=== PATIENT | male | born 1975 | race Caucasian/White ===

== ENCOUNTER 2018-07-07 11:55 | Inpatient (IN) | payer OTHER, MEDICAID ==
--- NOTE | 2018-07-07 13:21 | ER Document Report ---
ED Medical Screen (RME) - General TRAVEL OUTSIDE OF THE U.S. IN LAST 30 DAYS: No <MANDY PLAZA - Last Filed: 07/07/18 13:20> <DELANEY GOODMAN - Last Filed: 07/07/18 17:51> - General Chief Complaint: Abdominal Pain Stated Complaint: ABDOMINAL PAIN/VOMITING Time Seen by Provider: 07/07/18 13:11 Notes: 42-year-old male patient with history of alcoholic pancreatitis. He moved down here from [place] to do [employer] work in the end of April. He reports drinking Saturday night and Saturday night and triggering his pancreatitis. He did vomit this morning when he tried to drink a Monster drink. His last episode of pancreatitis was in March 2018 where he was hospitalized. He states that episode was not triggered by alcohol but feels that this episode most likely was triggered by the alcohol he drank this weekend. I have greeted and performed a rapid initial assessment of this patient. A comprehensive ED assessment and evaluation of the patient, analysis of test results and completion of the medical decision making process will be conducted by additional ED providers. (MANDY PLAZA) - Related Data Allergies/Adverse Reactions: meperidine [From Demerol] Adverse Reaction (Verified 07/07/18 11:58) Past Medical History - Social History Frequency of alcohol use: 8 beers a day Drug Abuse: None - Past Medical History Cardiac Medical History: Reports: Hx Hypercholesterolemia, Hx Hypertension Endocrine Medical History: Reports: Hx Diabetes Mellitus Type 2 - borderline Renal/ Medical History: Denies: Hx Peritoneal Dialysis <MANDY PLAZA - Last Filed: 07/07/18 13:20> - Vital signs Vitals: Temp Pulse Resp BP Pulse Ox 98.1 F 89 18 141/84 H 98 07/07/18 12:13 07/07/18 12:13 07/07/18 12:13 07/07/18 12:13 07/07/18 12:13 Course - Laboratory Result Diagrams: 07/07/18 13:25 07/07/18 13:25 <DELANEY GOODMAN - Last Filed: 07/07/18 17:51> - Vital Signs Vital signs: Temp Pulse Resp BP Pulse Ox 98.1 F 89 18 141/84 H 98 07/07/18 12:13 07/07/18 12:13 07/07/18 12:13 07/07/18 12:13 07/07/18 12:13 - Laboratory Laboratory results interpreted by me: 07/07/18 07/07/18 07/07/18 13:25 13:25 13:25 MCV 98 H MCH 33.9 H RDW 14.9 H Calcium 10.7 H ALT 16 L Albumin 5.1 H Lipase 929.6 H Urine Protein 30 H Urine Ketones TRACE H Urine Urobilinogen 2.0 H Doctor's Discharge <MANDY PLAZA - Last Filed: 07/07/18 13:20> <DELANEY GOODMAN - Last Filed: 07/07/18 17:51> - Discharge Clinical Impression: Alcohol abuse Pancreatitis Qualifiers: Chronicity: acute Pancreatitis type: alcohol induced Acute pancreatitis complication: unspecified Qualified Code(s): K85.20 - Alcohol induced acute pancreatitis without necrosis or infection Condition: Good Disposition: ADMITTED INPATIENT
[2018-07-07 13:44] LABS: APPEARANCE,URINE SLIGHTLY-CLOUDY; BILIRUBIN,URINE NEGATIVE (NEGATIVE); GLUCOSE, URINE NEGATIVE (NEGATIVE); KETONES,URINE TRACE mg/dL (NEGATIVE); LEUKOCYTE ESTERASE,URINE NEGATIVE (NEGATIVE); NITRITE,URINE NEGATIVE (NEGATIVE); PROTEIN,URINE 30 mg/dL (NEGATIVE); URINE SPECIFIC GRAVITY 1.028
[2018-07-07 13:45] LABS: COLOR,URINE YELLOW
[2018-07-07 14:01] LABS: ABSOLUTE EOSINOPHILS # (AUTO) 0.1 10^3/uL (0.0-0.6); ABSOLUTE LYMPHOCYTES (AUTO) 1.1 10^3/uL (0.5-4.7); ABSOLUTE MONOCYTES (AUTO) 0.7 10^3/uL (0.1-1.4); ABSOLUTE NEUT (AUTO) 5.9 10^3/uL (1.7-8.2); BASOPHILS % (AUTO) 0.4 % (0-2); EOSINOPHILS % (AUTO) 0.8 % (0-6); HEMATOCRIT 45.1 % (37.9-51.0); HEMOGLOBIN 15.6 g/dL (13.5-17.0); LYMPHOCYTES % (AUTO) 13.8 % (13-45); MEAN CORPUSCULAR HEMOGLOBIN 33.9 pg (27.0-33.4); MEAN CORPUSCULAR HGB CONC 34.6 g/dL (32.0-36.0); MEAN CORPUSCULAR VOLUME 98 fl (80-97); MONOCYTES % (AUTO) 9.4 % (3-13); PLATELET COUNT 350 10^3/uL (150-450); RED BLOOD COUNT 4.61 10^6/uL (4.35-5.55); RED CELL DISTRIBUTION WIDTH 14.9 % (11.5-14.0); SEGMENTED NEUTROPHILS % (AUTO) 75.6 % (42-78); TOTAL CELLS COUNTED % (AUTO) 100 %; WHITE BLOOD COUNT 7.8 10^3/uL (4.0-10.5)
[2018-07-07] MEDS ORDERED: RINGERS SOLUTION,LACTATED 1,000 ML IV ONE (14:07)
[2018-07-07 14:13] LABS: ALANINE AMINOTRANSFERASE 16 U/L (21-72); ALBUMIN 5.1 g/dL (3.5-5.0); ALKALINE PHOSPHATASE 76 U/L (38-126); ANION GAP 16 (5-19); ASPARTATE AMINO TRANSFERASE 24 U/L (17-59); BILIRUBIN,DIRECT 0.3 mg/dL (0.0-0.4); BILIRUBIN,TOTAL 0.5 mg/dL (0.2-1.3); BLOOD UREA NITROGEN 11 mg/dL (7-20); CALCIUM 10.7 mg/dL (8.4-10.2); CARBON DIOXIDE 28 mmol/L (22-30); CHLORIDE 99 mmol/L (98-107); GLUCOSE 107 mg/dL (75-110); LIPASE 929.6 U/L (23-300); POTASSIUM 4.6 mmol/L (3.6-5.0); SODIUM 142.6 mmol/L (137-145)
--- NOTE | 2018-07-07 15:23 | RADIOLOGY REPORT (SQ) ---
EXAM DESCRIPTION: CT ABD/PELVIS WITH IV ONLY COMPLETED DATE/TIME: 07/07/2018 3:09 pm REASON FOR STUDY: concern for pancreatic free fluid COMPARISON: None. TECHNIQUE: CT scan of the abdomen and pelvis performed using helical scanning technique with dynamic intravenous contrast injection. No oral contrast. Images reviewed with lung, soft tissue, and bone windows. Reconstructed coronal and sagittal MPR images reviewed. Delayed images for evaluation of the urinary system also acquired. All images stored on PACS. All CT scanners at this facility use dose modulation, iterative reconstruction, and/or weight based d osing when appropriate to reduce radiation dose to as low as reasonably achievable (ALARA). [facility]: Dose Right [facility]: CareDose [facility]: Dose Right [facility]: Teradose 4D [facility]: Definicare CONTRAST TYPE AND DOSE: contrast/concentration: Isovue 350.00 mg/ml; Total Contrast Delivered: 78.0 ml; Total Saline Delivered: 67.0 ml RENAL FUNCTION: GFR > 60. RADIATION DOSE: CT Rad equipment meets quality standard of care and radiation dose reduction techniq ues were employed. CTDIvol: 5.0 - 6.2 mGy. DLP: 612 mGy-cm.. LIMITATIONS: None. FINDINGS: LOWER CHEST: No significant findings. No nodules or infiltrates. LIVER: Normal size. No masses. No dilated ducts. SPLEEN: Normal size. No focal lesions. PANCREAS: No masses. No significant calcifications. Mild inflammatory changes involving the pancreat ic head. No adjacent peripancreatic fluid collections. Pancreatic duct not dilated. GALLBLADDER: No identified stones by CT criteria. No inflammatory changes to suggest cholecystitis. ADRENAL GLANDS: No significant masses or asymmetry. RIGHT KIDNEY AND URETER: No solid masses. No significant calcifications. No hydronephrosis or hyd roureter. LEFT KIDNEY AND URETER: No solid masses. No significant calcifications. No hydronephrosis or hydr oureter. AORTA AND VESSELS: No aneurysm. No dissection. Renal arteries, SMA, celiac without stenosis. RETROPERITONEUM: No retroperitoneal adenopathy, hemorrhage or masses. BOWEL AND PERITONEAL CAVITY: No masses or inflammatory changes. No free fluid or peritoneal masses. APPENDIX: Normal. PELVIS: No mass. No free fluid. Normal bladder. ABDOMINAL WALL: No masses. No hernias. BONES: No significant or acute findings. OTHER: No other significant finding. IMPRESSION: MILD INFLAMMATORY CHANGES INVOLVING THE PANCREATIC HEAD SUSPICIOUS FOR PANCREATITIS. NO ABNORMAL FLUID COLLECTIONS. NO OTHER SIGNIFICANT OR ACUTE FINDING IN THE ABDOMEN OR PELVIS ON CT SC AN WITH IV CONTRAST. TECHNICAL DOCUMENTATION: JOB ID: [id number] Quality ID # [id number]: Final reports with documentation of one or more dose reduction techniques (e.g., Au tomated exposure control, adjustment of the mA and/or kV according to patient size, use of iterative reconstruction technique) 2010 [employer]- All Rights Reserved Reading location - IP/workstation name: [email or web address]
[2018-07-07] MEDS ORDERED: ONDANSETRON HCL INJ/PF 4 MG/2 ML SDV IV ONE (15:24)
[2018-07-07] MEDS ORDERED: MORPHINE SULFATE 10 MG/ML INJ IV ONE (15:25)
[2018-07-07] MEDS ORDERED: DEXTROSE 50%-WATER 25 GM/50 ML DISP.SYRIN IV PRN ×2 (17:55)
[2018-07-07] MEDS ORDERED: DEXTROSE 40% GEL 15 GM TUBE PO PRN ×2 (17:55)
[2018-07-07] MEDS ORDERED: GLUCAGON,HUMAN RECOMB 1 MG INJ IM PRN (17:55)
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
--- NOTE | 2018-07-07 18:23 | ER Document Report ---
ED General - General Chief Complaint: Abdominal Pain Stated Complaint: ABDOMINAL PAIN/VOMITING Time Seen by Provider: 07/07/18 13:11 TRAVEL OUTSIDE OF THE U.S. IN LAST 30 DAYS: No - HPI Patient complains to provider of: Abdominal pain Onset: Other - 43-year-old male presents for evaluation of abdominal pain in the setting of chronic pancreatitis is a chronic alcoholic. He notes that he is a daily drinker of 8-10 beers has been seen multiple times in the past for his pancreatitis. Saturday he was binge drinking (2 days prior) and states that he was worse thereafter. He has been seen previously at the [facility] for his recurrent episodes of pancreatitis and a possible gastric cancer for which she had a feeding tube placed briefly which was removed and then he left it out. He denies any other fevers chills episodes. He is attempting also to stop drinking. - Related Data Allergies/Adverse Reactions: meperidine [From Demerol] Adverse Reaction (Verified 07/07/18 11:58) Past Medical History - General Information source: Patient, Relative - Social History Smoking Status: Current Every Day Smoker Frequency of alcohol use: 8 beers a day Drug Abuse: None Family History: None Patient has suicidal ideation: No Patient has homicidal ideation: No - Past Medical History Cardiac Medical History: Reports: Hx Hypercholesterolemia, Hx Hypertension Endocrine Medical History: Reports: Hx Diabetes Mellitus Type 2 - borderline Renal/ Medical History: Denies: Hx Peritoneal Dialysis Review of Systems - Review of Systems -: Yes All other systems reviewed and negative Physical Exam - Vital signs Vitals: Temp Pulse Resp BP Pulse Ox 98.1 F 89 18 141/84 H 98 07/07/18 12:13 07/07/18 12:13 07/07/18 12:13 07/07/18 12:13 07/07/18 12:13 - General General appearance: Alert In distress: Mild - HEENT Head: Normocephalic Eyes: Normal Conjunctiva: Normal Cornea: Normal Extraocular movements intact: Yes Eyelashes: Normal Pupils: PERRL - Respiratory Respiratory status: No respiratory distress Chest status: Nontender Breath sounds: Normal Chest palpation: Normal - Cardiovascular Rhythm: Regular Heart sounds: Normal auscultation Murmur: No - Abdominal Inspection: Normal Distension: No distension Tenderness: Tender - Diffusely tender no rebound no guarding - Back Back: Normal - Extremities General upper extremity: Normal inspection, Nontender, Normal strength, Normal temperature General lower extremity: Normal inspection, Nontender, Normal strength, Normal temperature - Neurological Neuro grossly intact: Yes Cognition: Normal Orientation: AAOx4 Philippe Coma Scale Eye Opening: Spontaneous Philippe Coma Scale Verbal: Oriented [place] Coma Scale Motor: Obeys Commands Irvona Coma Scale Total: 15 Speech: Normal Cranial nerves: Normal Cerebellar coordination: Normal Motor strength normal: LUE, RUE, LLE, RLE - Psychological Associated symptoms: Normal affect Course - Re-evaluation Re-evalutation: 07/07/18 18:53 43-year-old man with recurrent chronic alcoholic pancreatitis who presents for abdominal pain. He was binge drinking 2 days prior thereafter had the onset of abdominal pain. Would like to stop drinking states that he has never had any complicated withdrawal in the past he has gone cold turkey off of alcohol recently. We will obtain broad workup including CMP lipase and CT of the abdomen and pelvis. CT demonstrates inflammatory changes consistent with pancreatitis. Lipase is approximately 1000. Patient has been unable to tolerate p.o. in the emergency department and required multiple doses of narcotics as such we will plan for admission to the hospital for ongoing management of his symptoms and potential alcohol withdrawal. - Vital Signs Vital signs: Temp Pulse Resp BP Pulse Ox 98.7 F 63 18 170/90 H 99 07/07/18 18:48 07/07/18 18:48 07/07/18 18:48 07/07/18 18:48 07/07/18 18:48 - Laboratory Result Diagrams: 07/07/18 13:25 07/07/18 13:25 Laboratory results interpreted by me: 07/07/18 07/07/18 07/07/18 13:25 13:25 13:25 MCV 98 H MCH 33.9 H RDW 14.9 H Calcium 10.7 H ALT 16 L Albumin 5.1 H Lipase 929.6 H Urine Protein 30 H Urine Ketones TRACE H Urine Urobilinogen 2.0 H Discharge - Discharge Clinical Impression: Alcohol abuse Pancreatitis Qualifiers: Chronicity: acute Pancreatitis type: alcohol induced Acute pancreatitis complication: unspecified Qualified Code(s): K85.20 - Alcohol induced acute pancreatitis without necrosis or infection Condition: Good Disposition: ADMITTED INPATIENT Admitting Provider: Hospitalist Unit Admitted: Medical Floor
[2018-07-07] MEDS: NORMAL SALINE 1000 ML 1,000 ML IV PRN (18:32)
[2018-07-07] MEDS: MORPHINE SULFATE 10 MG/ML INJ IV PRN ×2 (19:14→23:47)
[2018-07-07] MEDS: ONDANSETRON HCL INJ/PF 4 MG/2 ML SDV IV PRN (19:14)
[2018-07-07] MEDS: NORMAL SALINE 1000 ML 1,000 ML with POTASSIUM CHLORIDE 20 MEQ, MAGNESIUM SULFATE 8 MEQ,... IV SCH ×5 (20:25)
[2018-07-07] MEDS: LORAZEPAM INJ 2 MG/1 ML VIAL IV PRN (22:20)
[2018-07-07] MEDS: HEPARIN SOD (PORCINE) 5,000 UNIT/ML 1 ML SYRINGE SUBCUT SCH (23:01)
[2018-07-08] MEDS: MORPHINE SULFATE 10 MG/ML INJ IV PRN ×6 (03:23→22:45)
[2018-07-08] MEDS: ONDANSETRON HCL INJ/PF 4 MG/2 ML SDV IV PRN ×2 (03:23→18:24)
[2018-07-08] MEDS: NORMAL SALINE 1000 ML 1,000 ML IV PRN ×2 (03:24→11:40)
[2018-07-08] MEDS: KETOROLAC TROMETHAMINE INJ/PF 30 MG/1 ML SDV IV PRN (06:30)
--- NOTE | 2018-07-08 07:57 | EKG REPORT ---
SEVERITY:- ABNORMAL ECG - SINUS RHYTHM CONSIDER LEFT VENTRICULAR HYPERTROPHY : Confirmed by: Jamison Oconnor MD 08-Jul-2018 07:57:10
[2018-07-08] MEDS: LORAZEPAM INJ 2 MG/1 ML VIAL IV PRN (10:19)
[2018-07-08] MEDS ORDERED: NORMAL SALINE INJ/PF 0.9% 10 ML SDV IV ONE (10:29)
--- NOTE | 2018-07-08 10:39 | PDOC PROGRESS REPORT ---
Subjective Progress Note for:: 07/08/18 Subjective:: 07/08/[id number]-gabh-old male admitted for abdominal pain on 07/07/2018 lipase was elevated it was [address] abdominal pelvis was done shows mild inflammation around the pancreas. Patient is n.p.o. he is on IV fluids getting IV morphine and Ativan for his anxiety he is smiling and denies any pain pain scale is stating he is around 1-2 x 10. Reason For Visit: ACUTE PANCREATITIS,CHRONIC PANC,ALCOHOL USE Physical Exam Vital Signs: Temp Pulse Resp BP Pulse Ox 98.3 F 65 18 122/71 99 07/08/18 03:44 07/08/18 03:44 07/08/18 03:44 07/08/18 03:44 07/08/18 03:44 Intake & Output 07/07/18 07/08/18 07/09/18 06:59 06:59 06:59 Intake Total 1000 Output Total 650 Balance 350 Weight 65.4 kg General appearance: PRESENT: no acute distress Head exam: PRESENT: atraumatic Eye exam: PRESENT: PERRLA Respiratory exam: PRESENT: clear to auscultation suzanna. ABSENT: rales, rhonchi, wheezes Cardiovascular exam: PRESENT: RRR. ABSENT: diastolic murmur, rubs, systolic murmur GI/Abdominal exam: PRESENT: other - On palpation abdomen was mildly tender no guarding no rigidity. Neurological exam: PRESENT: alert, awake, oriented to person, oriented to place , oriented to time, oriented to situation, CN II-XII grossly intact. ABSENT: motor sensory deficit Psychiatric exam: PRESENT: appropriate affect, normal mood. ABSENT: homicidal ideation, suicidal ideation Results Impressions: Abdomen/Pelvis CT 07/07/18 14:08 IMPRESSION: MILD INFLAMMATORY CHANGES INVOLVING THE PANCREATIC HEAD SUSPICIOUS FOR PANCREATITIS. NO ABNORMAL FLUID COLLECTIONS. NO OTHER SIGNIFICANT OR ACUTE FINDING IN THE ABDOMEN OR PELVIS ON CT SCAN WITH IV CONTRAST. Assessment & Plan - Diagnosis (1) Acute on chronic pancreatitis Is this a current diagnosis for this admission?: Yes Plan: 07/08/2018-complaining of pain scale of 2 x 10 is on IV fluids, is n.p.o., is on IV morphine and Ativan, and he wants to eat today, and we have explained to him I am going to repeat his labs today lipase and amylase based on those lobes those labs will make further recommendations. And patient agreed to be n.p.o. until that time. Patient has history of alcohol use and we are going to continue to monitor for her alcohol withdrawal. He is getting banana bag. Alcohol cessation was advised. (2) Alcohol abuse Is this a current diagnosis for this admission?: Yes Plan: 07/08/2018 patient has history of alcohol use. He denies any problems of alcohol withdrawal like anxiety or agitation. He received Benak. Banana bag. And is getting IV Ativan for anxiety and agitation. - Time Time Spent with patient: 15-24 minutes Medications reviewed and adjusted accordingly: Yes Anticipated discharge: Home
[2018-07-08] MEDS: HEPARIN SOD (PORCINE) 5,000 UNIT/ML 1 ML SYRINGE SUBCUT SCH ×2 (11:35→22:45)
[2018-07-08 12:38] LABS: LIPASE 500.9 U/L (23-300)
[2018-07-08] MEDS: NORMAL SALINE 1000 ML 1,000 ML with POTASSIUM CHLORIDE 20 MEQ, MAGNESIUM SULFATE 8 MEQ,... IV SCH ×5 (17:53)
[2018-07-09] MEDS: MORPHINE SULFATE 10 MG/ML INJ IV PRN ×5 (03:46→23:36)
[2018-07-09] MEDS: ONDANSETRON HCL INJ/PF 4 MG/2 ML SDV IV PRN (03:47)
[2018-07-09] MEDS: NORMAL SALINE 1000 ML 1,000 ML IV PRN (08:36)
[2018-07-09] MEDS: KETOROLAC TROMETHAMINE INJ/PF 30 MG/1 ML SDV IV PRN ×2 (10:21→19:25)
[2018-07-09] MEDS: HEPARIN SOD (PORCINE) 5,000 UNIT/ML 1 ML SYRINGE SUBCUT SCH ×2 (10:21→21:32)
--- NOTE | 2018-07-09 10:55 | PDOC PROGRESS REPORT ---
Subjective Progress Note for:: 07/09/18 Subjective:: 07/08/[id number]-rhfn-old male admitted for abdominal pain on 07/07/2018 lipase was elevated it was [address] abdominal pelvis was done shows mild inflammation around the pancreas. Patient is n.p.o. he is on IV fluids getting IV morphine and Ativan for his anxiety he is smiling and denies any pain pain scale is stating he is around 1-2 x 10. 2017 patient is complaining of feeling horrible because of the pain. He is getting morphine 2 mg IV p.o. 4 hours as needed but as per him it is lasting for only 1 hour. While he is talking I gently palpated his belly and there is no complaints of tenderness guarding or rigidity. The pain medication seeking. No acute events in the last 24 hours. Reason For Visit: ACUTE PANCREATITIS,CHRONIC PANC,ALCOHOL USE Physical Exam Vital Signs: Temp Pulse Resp BP Pulse Ox 98.0 F 62 16 110/74 100 07/09/18 07:23 07/09/18 07:23 07/09/18 07:23 07/09/18 07:23 07/09/18 07:23 Intake & Output 07/08/18 07/09/18 07/10/18 06:59 06:59 06:59 Intake Total 1000 2023 1023 Output Total 650 1000 Balance 350 1023 1023 Weight 65.4 kg 66.9 kg General appearance: PRESENT: no acute distress Head exam: PRESENT: atraumatic Eye exam: PRESENT: PERRLA Mouth exam: PRESENT: moist Neck exam: ABSENT: carotid bruit, JVD, lymphadenopathy, thyromegaly Respiratory exam: PRESENT: clear to auscultation suzanna. ABSENT: rales, rhonchi, wheezes Cardiovascular exam: PRESENT: RRR. ABSENT: diastolic murmur, rubs, systolic murmur GI/Abdominal exam: PRESENT: normal bowel sounds, soft. ABSENT: distended, guarding, mass, organolmegaly, rebound, tenderness Neurological exam: PRESENT: alert, awake, oriented to person, oriented to place , oriented to time, oriented to situation, CN II-XII grossly intact. ABSENT: motor sensory deficit Psychiatric exam: PRESENT: normal mood. ABSENT: homicidal ideation, suicidal ideation Results Laboratory Results: 07/08/18 11:24 Amylase 54 Lipase 500.9 H Impressions: Abdomen/Pelvis CT 07/07/18 14:08 IMPRESSION: MILD INFLAMMATORY CHANGES INVOLVING THE PANCREATIC HEAD SUSPICIOUS FOR PANCREATITIS. NO ABNORMAL FLUID COLLECTIONS. NO OTHER SIGNIFICANT OR ACUTE FINDING IN THE ABDOMEN OR PELVIS ON CT SCAN WITH IV CONTRAST. Assessment & Plan - Diagnosis (1) Acute on chronic pancreatitis Is this a current diagnosis for this admission?: Yes Plan: 07/08/2018-complaining of pain scale of 2 x 10 is on IV fluids, is n.p.o., is on IV morphine and Ativan, and he wants to eat today, and we have explained to him I am going to repeat his labs today lipase and amylase based on those lobes those labs will make further recommendations. And patient agreed to be n.p.o. until that time. Patient has history of alcohol use and we are going to continue to monitor for her alcohol withdrawal. He is getting banana bag. Alcohol cessation was advised. 07/09/2018-is admitted with acute pancreatitis CT abdomen confirmed the diagnosis. She is n.p.o. until now he is getting IV morphine every 4 hours. Also on IV fluids. The lipase levels repeated yesterday came back as 500. To repeat the lipase levels today. Plan today is to start him on full liquid diet. And I am also stopping his IV fluids. Added Percocet 1 tablet every 4 as needed for pain. (2) Alcohol abuse Is this a current diagnosis for this admission?: Yes Plan: 07/08/2018 patient has history of alcohol use. He denies any problems of alcohol withdrawal like anxiety or agitation. He received Benak. Banana bag. And is getting IV Ativan for anxiety and agitation. 07/09/2018 she is getting banana bag on daily basis, and is getting IV Ativan for anxiety and agitation. No evidence of any alcohol withdrawal. - Time Time Spent with patient: 15-24 minutes Medications reviewed and adjusted accordingly: Yes Anticipated discharge: Home
[2018-07-09] MEDS: NORMAL SALINE 1000 ML 1,000 ML with POTASSIUM CHLORIDE 20 MEQ, MAGNESIUM SULFATE 8 MEQ,... IV SCH ×5 (18:08)
[2018-07-10] MEDS: LORAZEPAM INJ 2 MG/1 ML VIAL IV PRN (01:34)
[2018-07-10] MEDS: MORPHINE SULFATE 10 MG/ML INJ IV PRN ×3 (03:43→16:49)
[2018-07-10] MEDS: KETOROLAC TROMETHAMINE INJ/PF 30 MG/1 ML SDV IV PRN ×3 (04:40→19:38)
[2018-07-10 05:05] LABS: ABSOLUTE EOSINOPHILS # (AUTO) 0.1 10^3/uL (0.0-0.6); ABSOLUTE LYMPHOCYTES (AUTO) 1.4 10^3/uL (0.5-4.7); ABSOLUTE MONOCYTES (AUTO) 0.5 10^3/uL (0.1-1.4); ABSOLUTE NEUT (AUTO) 1.9 10^3/uL (1.7-8.2); BASOPHILS % (AUTO) 0.6 % (0-2); EOSINOPHILS % (AUTO) 2.1 % (0-6); HEMATOCRIT 36.9 % (37.9-51.0); LYMPHOCYTES % (AUTO) 36.3 % (13-45); MEAN CORPUSCULAR HEMOGLOBIN 33.4 pg (27.0-33.4); MEAN CORPUSCULAR HGB CONC 34.2 g/dL (32.0-36.0); MEAN CORPUSCULAR VOLUME 98 fl (80-97); PLATELET COUNT 283 10^3/uL (150-450); RED BLOOD COUNT 3.77 10^6/uL (4.35-5.55); RED CELL DISTRIBUTION WIDTH 14.4 % (11.5-14.0); TOTAL CELLS COUNTED % (AUTO) 100 %; WHITE BLOOD COUNT 3.9 10^3/uL (4.0-10.5)
[2018-07-10 05:06] LABS: HEMOGLOBIN 12.6 g/dL (13.5-17.0)
[2018-07-10 05:26] LABS: ALANINE AMINOTRANSFERASE 13 U/L (21-72); ALBUMIN 3.2 g/dL (3.5-5.0); ALKALINE PHOSPHATASE 49 U/L (38-126); ANION GAP 8 (5-19); ASPARTATE AMINO TRANSFERASE 14 U/L (17-59); BILIRUBIN,DIRECT 0.2 mg/dL (0.0-0.4); BILIRUBIN,TOTAL 0.5 mg/dL (0.2-1.3); BLOOD UREA NITROGEN 7 mg/dL (7-20); CALCIUM 9.2 mg/dL (8.4-10.2); CARBON DIOXIDE 25 mmol/L (22-30); CHLORIDE 106 mmol/L (98-107); GLUCOSE 94 mg/dL (75-110); POTASSIUM 4.3 mmol/L (3.6-5.0); SODIUM 139.3 mmol/L (137-145); TOTAL PROTEIN 5.7 g/dL (6.3-8.2)
--- NOTE | 2018-07-10 08:40 | PDOC PROGRESS REPORT ---
Subjective Progress Note for:: 07/10/18 Subjective:: [birth year]/08[birth year][id number]-old male admitted for abdominal pain on 07/07/2018 lipase was elevated it was [address] abdominal pelvis was done shows mild inflammation around the pancreas. Patient is n.p.o. he is on IV fluids getting IV morphine and Ativan for his anxiety he is smiling and denies any pain pain scale is stating he is around 1-2 x 10. 2017 patient is complaining of feeling horrible because of the pain. He is getting morphine 2 mg IV p.o. 4 hours as needed but as per him it is lasting for only 1 hour. While he is talking I gently palpated his belly and there is no complaints of tenderness guarding or rigidity. The pain medication seeking. No acute events in the last 24 hours. 07/10/2018 and is still complaining of pain, soreness around the umbilical region. He is getting morphine 2 mg IV every 4 hours as needed, Percocet 1 tablet every 4 hours as needed. He was able to tolerate the full liquid diet yesterday. Other than the pain denies any complaints. Reason For Visit: ACUTE PANCREATITIS,CHRONIC PANC,ALCOHOL USE Physical Exam Vital Signs: Temp Pulse Resp BP Pulse Ox 98.2 F 56 L 16 135/80 H 100 07/10/18 07:32 07/10/18 07:32 07/10/18 07:32 07/10/18 07:32 07/10/18 07:32 Intake & Output 07/09/18 07/10/18 07/11/18 06:59 06:59 06:59 Intake Total 3 4453 Output Total 1000 1500 Balance 1023 2953 Weight 66.9 kg 65.6 kg General appearance: PRESENT: no acute distress Head exam: PRESENT: atraumatic Eye exam: PRESENT: PERRLA Mouth exam: PRESENT: moist Neck exam: ABSENT: carotid bruit, JVD, lymphadenopathy, thyromegaly Respiratory exam: PRESENT: clear to auscultation suzanna. ABSENT: rales, rhonchi, wheezes Cardiovascular exam: PRESENT: RRR. ABSENT: diastolic murmur, rubs, systolic murmur GI/Abdominal exam: PRESENT: other - Voluntary guarding. No tenderness on abdominal examination. Neurological exam: PRESENT: alert, awake, oriented to person, oriented to place , oriented to time, oriented to situation, CN II-XII grossly intact. ABSENT: motor sensory deficit Psychiatric exam: PRESENT: appropriate affect, normal mood. ABSENT: homicidal ideation, suicidal ideation Results Laboratory Results: 07/10/18 04:11 07/10/18 04:11 07/09/18 07/10/18 07/10/18 11:54 04:11 04:11 WBC 3.9 L RBC 3.77 L Hgb 12.6 L D Hct 36.9 L MCV 98 H MCH 33.4 MCHC 34.2 RDW 14.4 H Plt Count 283 Seg Neutrophils % 48.0 Lymphocytes % 36.3 Monocytes % 13.0 Eosinophils % 2.1 Basophils % 0.6 Absolute Neutrophils 1.9 Absolute Lymphocytes 1.4 Absolute Monocytes 0.5 Absolute Eosinophils 0.1 Absolute Basophils 0.0 Sodium 139.3 Potassium 4.3 Chloride 106 Carbon Dioxide 25 Anion Gap 8 BUN 7 Creatinine 0.71 Est GFR ( Amer) > 60 Est GFR (Non-Af Amer) > 60 Glucose 94 Calcium 9.2 Magnesium 2.2 Total Bilirubin 0.5 AST 14 L ALT 13 L Alkaline Phosphatase 49 Total Protein 5.7 L Albumin 3.2 L Lipase 381.9 H Impressions: Abdomen/Pelvis CT 07/07/18 14:08 IMPRESSION: MILD INFLAMMATORY CHANGES INVOLVING THE PANCREATIC HEAD SUSPICIOUS FOR PANCREATITIS. NO ABNORMAL FLUID COLLECTIONS. NO OTHER SIGNIFICANT OR ACUTE FINDING IN THE ABDOMEN OR PELVIS ON CT SCAN WITH IV CONTRAST. Assessment & Plan - Diagnosis (1) Acute on chronic pancreatitis Is this a current diagnosis for this admission?: Yes Plan: 07/08/2018-complaining of pain scale of 2 x 10 is on IV fluids, is n.p.o., is on IV morphine and Ativan, and he wants to eat today, and we have explained to him I am going to repeat his labs today lipase and amylase based on those lobes those labs will make further recommendations. And patient agreed to be n.p.o. until that time. Patient has history of alcohol use and we are going to continue to monitor for her alcohol withdrawal. He is getting banana bag. Alcohol cessation was advised. 07/09/2018-is admitted with acute pancreatitis CT abdomen confirmed the diagnosis. She is n.p.o. until now he is getting IV morphine every 4 hours. Also on IV fluids. The lipase levels repeated yesterday came back as 500. To repeat the lipase levels today. Plan today is to start him on full liquid diet. And I am also stopping his IV fluids. Added Percocet 1 tablet every 4 as needed for pain. 07/10/2018 and was able to tolerate the full liquid diet yesterday. Lipase is 381 yesterday. Repeat the lipase level today. I am going to start him on regular diet today. aFebrile and WBC was normal. (2) Alcohol abuse Is this a current diagnosis for this admission?: Yes Plan: 07/08/2018 patient has history of alcohol use. He denies any problems of alcohol withdrawal like anxiety or agitation. He received Benak. Banana bag. And is getting IV Ativan for anxiety and agitation. 07/09/2018 he is getting banana bag on daily basis, and is getting IV Ativan for anxiety and agitation. No evidence of any alcohol withdrawal. 07/10/2018 patient is getting banana bag and daily basis. Also on IV Ativan for anxiety and agitation. Symptoms of alcohol withdrawal are noticed during this hospital stay. - Time Time Spent with patient: 15-24 minutes Medications reviewed and adjusted accordingly: Yes Anticipated discharge: Home
[2018-07-10] MEDS: OXYCODONE-ACETAMINOPHEN 5-325 MG TABLET PO PRN ×2 (10:37→22:50)
[2018-07-10] MEDS: HEPARIN SOD (PORCINE) 5,000 UNIT/ML 1 ML SYRINGE SUBCUT SCH ×2 (10:38→22:51)
[2018-07-10] MEDS: NORMAL SALINE 1000 ML 1,000 ML with POTASSIUM CHLORIDE 20 MEQ, MAGNESIUM SULFATE 8 MEQ,... IV SCH ×5 (17:21)
[2018-07-11] MEDS: KETOROLAC TROMETHAMINE INJ/PF 30 MG/1 ML SDV IV PRN (03:22)
[2018-07-11 05:23] LABS: ABSOLUTE EOSINOPHILS # (AUTO) 0.1 10^3/uL (0.0-0.6); ABSOLUTE LYMPHOCYTES (AUTO) 1.3 10^3/uL (0.5-4.7); ABSOLUTE MONOCYTES (AUTO) 0.5 10^3/uL (0.1-1.4); BASOPHILS % (AUTO) 0.5 % (0-2); EOSINOPHILS % (AUTO) 1.6 % (0-6); HEMATOCRIT 39.1 % (37.9-51.0); HEMOGLOBIN 13.4 g/dL (13.5-17.0); LYMPHOCYTES % (AUTO) 26.5 % (13-45); MEAN CORPUSCULAR HEMOGLOBIN 33.4 pg (27.0-33.4); MEAN CORPUSCULAR HGB CONC 34.2 g/dL (32.0-36.0); MEAN CORPUSCULAR VOLUME 98 fl (80-97); MONOCYTES % (AUTO) 11.1 % (3-13); PLATELET COUNT 298 10^3/uL (150-450); RED BLOOD COUNT 3.99 10^6/uL (4.35-5.55); RED CELL DISTRIBUTION WIDTH 14.7 % (11.5-14.0); SEGMENTED NEUTROPHILS % (AUTO) 60.3 % (42-78); TOTAL CELLS COUNTED % (AUTO) 100 %; WHITE BLOOD COUNT 4.9 10^3/uL (4.0-10.5)
[2018-07-11 05:44] LABS: ALANINE AMINOTRANSFERASE 17 U/L (21-72); ALBUMIN 3.8 g/dL (3.5-5.0); ALKALINE PHOSPHATASE 54 U/L (38-126); ANION GAP 10 (5-19); ASPARTATE AMINO TRANSFERASE 18 U/L (17-59); BILIRUBIN,DIRECT 0.2 mg/dL (0.0-0.4); BILIRUBIN,TOTAL 0.4 mg/dL (0.2-1.3); BLOOD UREA NITROGEN 16 mg/dL (7-20); CALCIUM 9.7 mg/dL (8.4-10.2); CARBON DIOXIDE 26 mmol/L (22-30); CHLORIDE 105 mmol/L (98-107); GLUCOSE 115 mg/dL (75-110); POTASSIUM 4.7 mmol/L (3.6-5.0); SODIUM 141.4 mmol/L (137-145); TOTAL PROTEIN 6.3 g/dL (6.3-8.2)
[2018-07-11 09:03] VITALS: BP 141/85
[2018-07-11] MEDS: HEPARIN SOD (PORCINE) 5,000 UNIT/ML 1 ML SYRINGE SUBCUT SCH (09:43)
--- NOTE | 2018-07-11 13:52 | PDOC DISCHARGE SUMMARY ---
General - Admit/Disc Date/PCP Admission Date/Primary Care Provider: 07/07/18 18:44 Discharge Date: 07/11/18 - Discharge Diagnosis (1) Acute on chronic pancreatitis Is this a current diagnosis for this admission?: Yes Summary: 07/11/2018 [id number]-year-old male came to the emergency room with abdominal pain on 07/07/2018 lipase was elevated to [address] abdomen or pelvis shows mild inflammatory changes around the pancreas. He was treated with IV fluids he was kept n.p.o. initially and received IV pain medications he is shows improvement slowly but surely and able to tolerate the regular diet since yesterday. He said he is pain-free today and expressing desire to go home. Acute on chronic pancreatitis is resolved. (2) Alcohol abuse Is this a current diagnosis for this admission?: Yes Summary: 07/11/2018 patient has history of chronic alcohol use. He was given a banana bag on daily basis. Was also on Ativan as needed to prevent alcohol withdrawal symptoms. Patient was asymptomatic no evidence of any alcohol withdrawal during the hospital stay. - Additional Information Resuscitation Status: Full Code Discharge Diet: As Tolerated Discharge Activity: Activity As Tolerated Prescriptions: Oxycodone HCl/Acetaminophen [Percocet 5-325 mg Tablet] 1 tab PO Q4HP PRN #20 tablet PRN Reason: Home Medications: Amlodipine Besylate [Norvasc 2.5 mg Tablet] 2.5 mg PO DAILY 07/07/18 Atorvastatin Calcium [Lipitor 20 mg Tablet] 20 mg PO QHS 07/07/18 Loratadine [Claritin 10 mg Tablet] 10 mg PO DAILY 07/07/18 Losartan Potassium 50 mg PO DAILY 07/07/18 Nicotine [Nicoderm 14 mg/24 Hr Transdermal Patch] 1 patch TP DAILY 07/07/18 Omeprazole 40 mg PO BID 07/07/18 Ondansetron HCl 4 mg PO Q8HP PRN 07/07/18 Pantoprazole Sodium [Protonix] 40 mg PO DAILY 07/07/18 Tamsulosin HCl [Flomax 0.4 mg Cap.sr] 0.4 mg PO DAILY 07/07/18 Vitamin B Complex [B Complex] 1 each PO DAILY 07/07/18 Oxycodone HCl/Acetaminophen [Percocet 5-325 mg Tablet] 1 tab PO Q4HP PRN #20 tablet 07/11/18 History of Present Illness History of Present Illness: LATISHA BEAR is a 43 year old male Came to the emergency room with complaints of abdominal pain on 07/07/2018, pain was severe at the time of presentation. Lipase was 926. CT abdomen pelvis was done shows mild inflammation around the pancreas. Patient was admitted to be treated for acute pancreatitis. The acute on chronic pancreatitis may be secondary to continuous alcohol use. Physical Exam Vital Signs: Temp Pulse Resp BP Pulse Ox 98.4 F 55 L 16 141/85 H 100 07/11/18 08:59 07/11/18 08:59 07/11/18 08:59 07/11/18 08:59 07/11/18 08:59 Intake & Output 07/10/18 07/11/18 07/12/18 06:59 06:59 06:59 Intake Total 4453 2655 Output Total 1500 Balance 2953 2655 Weight 65.6 kg 61.1 kg General appearance: PRESENT: no acute distress Eye exam: PRESENT: PERRLA Mouth exam: PRESENT: moist Neck exam: ABSENT: carotid bruit, JVD, lymphadenopathy, thyromegaly Cardiovascular exam: PRESENT: RRR. ABSENT: diastolic murmur, rubs, systolic murmur GI/Abdominal exam: PRESENT: normal bowel sounds, soft. ABSENT: distended, guarding, mass, organolmegaly, rebound, tenderness Neurological exam: PRESENT: alert, awake, oriented to person, oriented to place , oriented to time, oriented to situation, CN II-XII grossly intact. ABSENT: motor sensory deficit Psychiatric exam: PRESENT: appropriate affect, normal mood. ABSENT: homicidal ideation, suicidal ideation Results Laboratory Results: 07/11/18 04:20 07/11/18 04:20 07/11/18 07/11/18 07/11/18 04:20 04:20 04:20 WBC 4.9 RBC 3.99 L Hgb 13.4 L Hct 39.1 MCV 98 H MCH 33.4 MCHC 34.2 RDW 14.7 H Plt Count 298 Seg Neutrophils % 60.3 Lymphocytes % 26.5 Monocytes % 11.1 Eosinophils % 1.6 Basophils % 0.5 Absolute Neutrophils 3.0 Absolute Lymphocytes 1.3 Absolute Monocytes 0.5 Absolute Eosinophils 0.1 Absolute Basophils 0.0 Sodium 141.4 Potassium 4.7 Chloride 105 Carbon Dioxide 26 Anion Gap 10 BUN 16 Creatinine 0.90 Est GFR ( Amer) > 60 Est GFR (Non-Af Amer) > 60 Glucose 115 H Calcium 9.7 Magnesium 2.3 Total Bilirubin 0.4 AST 18 ALT 17 L Alkaline Phosphatase 54 Total Protein 6.3 Albumin 3.8 Lipase 599.5 H Impressions: Abdomen/Pelvis CT 07/07/18 14:08 IMPRESSION: MILD INFLAMMATORY CHANGES INVOLVING THE PANCREATIC HEAD SUSPICIOUS FOR PANCREATITIS. NO ABNORMAL FLUID COLLECTIONS. NO OTHER SIGNIFICANT OR ACUTE FINDING IN THE ABDOMEN OR PELVIS ON CT SCAN WITH IV CONTRAST. Qualifiers - * PATIENT BEING DISCHARGED WITH ANY OF THE FOLLOWING DIAGNOSIS: No VTE patient discharged on overlapping Therapy?: Yes
== END 2018-07-11 09:48 | disposition home or self-care (01) | DRG 440 ==
LOC: ER 11:55 → EH 18:44 → 3N 23:42
PROVIDERS: ADMIT Internal Medicine; ATTEND Internal Medicine
DX: K85.20 Alcohol induced acute pancreatitis without necrosis or infection (principal); K86.0 Alcohol-induced chronic pancreatitis; F10.10 Alcohol abuse, uncomplicated; E78.00 Pure hypercholesterolemia, unspecified; I10 Essential (primary) hypertension; F17.210 Nicotine dependence, cigarettes, uncomplicated; F41.9 Anxiety disorder, unspecified; R73.03 Prediabetes; Z79.899 Other long term (current) drug therapy; Z88.6 Allergy status to analgesic agent
CPT/HCPCS: 36415; 74177; 80053; 81001; 82150; 82962; 83690; 83735; 85025; 93005; 93010; 96361; 96374; 96375; 99285; J1644; J1885; J2060; J2270; J2405; J3411; J3475; J3480; J3490; J7030; J7120